=== PATIENT | female | born 1970 | race Caucasian/White ===

== ENCOUNTER 2017-11-04 12:07 | Observation (INO) | payer MEDICAID ==
[~2017-11-04] VITALS: Ht 170.2 cm; Wt 99.5 kg
[2017-11-04] MEDS ORDERED: ZYRTEC 10MG10 MG PO (12:41)
[2017-11-04] MEDS ORDERED: PRILOSEC 20MG20 MG PO (12:41)
[2017-11-04] MEDS ORDERED: LEVOXYL0.15 MG PO (12:42)
[2017-11-04] MEDS ORDERED: NORVASC 10MG10 MG PO (12:43)
[2017-11-04] MEDS ORDERED: PROZAC40 MG PO (12:43)
[2017-11-04 13:19] LABS: BASO # 0.1 (0.0-0.2); BASO % 0.5 % (0.0-2.0); EOS # 0.4 (0.0-0.7); EOS % 2.6 % (0-4.0); GRAN # 8.7 (1.4-6.5); GRAN % 59.4 % (42.2-75.2); HEMATOCRIT 44.6 % (37.0-47.0); HEMOGLOBIN 15.3 g/dl (12.5-16.0); LYMPH % 27.3 % (20.0-51.0); MEAN CELL VOLUME 86 fl (80.0-100.0); MEAN CORPUSCULAR HEMOGLOBIN 29 pg (27.0-31.0); MEAN CORPUSCULAR HGB CONC 34 g/dl (33.0-37.0); MEAN PLATELET VOLUME 11.2 fl (7.4-10.4); MONO # 1.5 (0.1-0.6); PLATELET COUNT 267 K/mm3 (130-400); REDCELL DISTRIBUTION WIDTH-CV 13.4 % (11.5-14.5)
[2017-11-04 13:22] VITALS: BP 162/87; PULSE 68
[2017-11-04 13:28] LABS: INR 1.1 (0.8-3.0); PROTHROMBIN TIME 13.1 SECONDS (9.7-12.8)
[2017-11-04 13:30] LABS: PARTIAL THROMBOPLASTIN TIME 31.2 SECONDS (26.0-37.0)
[2017-11-04 13:34] LABS: COLLECTION METHOD CLEAN CATCH
[2017-11-04 13:42] LABS: MUCOUS Present /lpf; PH 5 (5-8); SQUAMOUS EPITHELIAL 0-2 /hpf; URINE APPEARANCE Hazy; URINE BACTERIA None Seen /hpf; URINE BILIRUBIN Positive (NEGATIVE); URINE BLOOD Negative (NEGATIVE); URINE CALCIUM OXALATE CRYSTAL Present /hpf; URINE COLOR Amber; URINE GLUCOSE Negative (NEGATIVE); URINE KETONE Trace (NEGATIVE); URINE LEUKOCYTE ESTERASE Negative (NEGATIVE); URINE NITRATE Negative (NEGATIVE); URINE PROTEIN(semi-quant) 2+ (NEGATIVE)
[2017-11-04 13:42] LABS: ALANINE AMINOTRANSFERASE 55 U/L (9-52); ALBUMIN 3.8 gm/dL (3.5-5.0); ALKALINE PHOSPHATASE 119 U/L (50-136); ANION GAP 13 mmol/L (7-16); AST,SGOT 31 U/L (15-37); BILIRUBIN,TOTAL 0.5 mg/dL (0.0-1.0); BLOOD UREA NITROGEN 12 mg/dL (7-17); C-REACTIVE PROTEIN 1.4 mg/dL (0.0-0.9); CALCIUM 9.6 mg/dL (8.4-10.2); CARBON DIOXIDE 24 mmol/L (22-30); CHLORIDE 105 mmol/L (98-107); CREATININE, serum 0.85 mg/dL (0.52-1.25); GLUCOSE 107 mg/dL (74-106); LIPASE 119 U/L (23-300); POTASSIUM 3.1 mmol/L (3.4-5.0); SODIUM 142 mmol/L (137-145); TOTAL PROTEIN 7.5 gm/dL (6.4-8.2)
[2017-11-04 13:51] LABS: TROPONIN-I < 0.012 ng/mL (0.000-0.034)
[2017-11-04 20:00] VITALS: BP 176/67; PULSE 78; TEMP 98.8
[2017-11-05] VITALS: BP 176/70; PULSE 64; TEMP 97.3
[2017-11-05 04:00] VITALS: BP 156/64; PULSE 65; TEMP 96.8
[2017-11-05 06:13] LABS: MEAN CELL VOLUME 89 fl (80.0-100.0); MEAN CORPUSCULAR HEMOGLOBIN 29 pg (27.0-31.0); MEAN CORPUSCULAR HGB CONC 33 g/dl (33.0-37.0); MEAN PLATELET VOLUME 11.2 fl (7.4-10.4); PLATELET COUNT 230 K/mm3 (130-400); RED BLOOD COUNT 4.39 M/mm3 (4.10-5.30); REDCELL DISTRIBUTION WIDTH-CV 13.7 % (11.5-14.5)
[2017-11-05 06:14] LABS: HEMOGLOBIN 12.8 g/dl (12.5-16.0)
[2017-11-05 06:31] LABS: CALCIUM 8.7 mg/dL (8.4-10.2); CREATININE, serum 0.89 mg/dL (0.52-1.25); POTASSIUM 3.7 mmol/L (3.4-5.0)
[2017-11-05 06:44] LABS: BAND 4 % (0-10); EOSINOPHIL 3 % (0-4); LYMPHOCYTE 55 % (20.0-51.0); METAMYELOCYTE 1 % (0-0); NEUTROPHILS 33 % (42.0-75.2); PLATELET ESTIMATE NORMAL (NORMAL)
[2017-11-05 06:53] LABS: MAGNESIUM 1.9 mg/dL (1.6-2.3)
[2017-11-05 07:43] VITALS: BP 138/52; PULSE 56; TEMP 98.2
[2017-11-05] MEDS ORDERED: PROTONIX 40MG T40 MG PO (07:59)
[2017-11-05] MEDS ORDERED: CARAFATE 1GM1 G PO (08:23)
[2017-11-05 12:37] VITALS: BP 158/66; PULSE 68; TEMP 97.9
== END 2017-11-05 15:57 | disposition home or self-care (01) ==
LOC: COL.ER 12:07 → MEDICAL 15:12
PROVIDERS: Emergency Medicine; Physician Assistant
DX: K29.30 Chronic superficial gastritis without bleeding (principal); K29.80 Duodenitis without bleeding; K25.4 Chronic or unspecified gastric ulcer with hemorrhage; F17.210 Nicotine dependence, cigarettes, uncomplicated; D72.829 Elevated white blood cell count, unspecified; E87.6 Hypokalemia; E83.42 Hypomagnesemia; K21.9 Gastro-esophageal reflux disease without esophagitis; E03.9 Hypothyroidism, unspecified; F32.9 Major depressive disorder, single episode, unspecified; I10 Essential (primary) hypertension; Z90.710 Acquired absence of both cervix and uterus; Z90.49 Acquired absence of other specified parts of digestive tract; Z85.41 Personal history of malignant neoplasm of cervix uteri; Z87.11 Personal history of peptic ulcer disease
CPT/HCPCS: C9113; G0378; J2250; J2270; J2405; J2550; J3010; J3475; J3480; J7030; Q9967